=== PATIENT | male | born 1965 | race Caucasian/White ===

== ENCOUNTER 2016-11-21 00:22 | Emergency (ER) | payer OTHER ==
[~2016-11-21] VITALS: Ht 172.7 cm; Wt 85.5 kg
[~2016-11-21 00:22] MED LIST: ACET650T82 PO; ASCO500C5 PO; ASPCH81X PO; ASPEC81 PO; IBUP-1451 PO; LABE100T23 PO; OMEG1CAP81 PO; PRV100 PO; VITA200C5 PO
[2016-11-21 00:29] VITALS: TEMP 37; Ht 172.7 cm; Wt 85.5 kg
[2016-11-21] MEDS ORDERED: KETOROLAC TROMETHAMINE 60 MG/2 ML VIAL IM STA (00:50)
[2016-11-21] MEDS ORDERED: DEXAMETHASONE SOD INJ 10 MG/ML VIAL IM ONE (01:00)
[2016-11-21] MEDS ORDERED: HYG/25 PO (01:07)
[2016-11-21] MEDS ORDERED: METH4PAK PO (02:05)
[2016-11-21 02:28] VITALS: BP 133/75; PULSE 85; O2SAT 98
--- NOTE | 2016-11-21 08:40 | DIAGNOSTIC IMAGING REPORT ---
LEFT ELBOW 3 VIEWS CLINICAL HISTORY: Left elbow pain. No reported history of trauma. FINDINGS: 3 views of the left elbow are obtained. No prior studies are available for comparison at the time of dictation. No clear fracture is identified. Joint spaces appear preserved. There is an enthesophyte at the triceps insertion. An elbow joint effusion is identified. The overlying soft tissues are within normal limits. IMPRESSION: 1. No distracted fracture is identified. 2. There is a nonspecific joint effusion. Although this could be seen in the setting of occult fracture, this is considered unlikely without a history of trauma. Clinical correlation will be essential. Electronically signed by: Joo Rowan M.D. 11/21/2016 8:39 AM
--- NOTE | 2016-11-21 21:38 | EMERGENCY ROOM VISIT NOTE ---
ED Visit Note First contact with patient: 00:38 CHIEF COMPLAINT: Elbow pain HISTORY OF PRESENT ILLNESS: This 51 year old male patient presents to the emergency department complaining of pain in the left elbow slowly worsening over the past 3-4 days. The patient works with [employer], where he accidentally boxes on a regular basis. He does not recall a distinct injury or trauma. His pain is primarily along the outside of the elbow and will occasionally radiate down into his wrist. He has not had rash or fever. The patient rates their pain as dull and 7/10. The patient has taken one old oxycodone without relief of the pain. The patient has not had previous fractures to this elbow. The patient does have intermittent pins and needle sensation, but this does not persist. He is without neck or shoulder discomfort. The patient denies any other injuries. REVIEW OF SYSTEMS: A 6 system review of systems was completed with positives and pertinent negatives listed in the HPI. ALLERGIES: Hydrocodone MEDICATIONS: No chronic medications PMH: Otherwise healthy SOCIAL HISTORY: Lives at home with family. Employed. PHYSICAL EXAM: Vital Signs: Reviewed Nurse's notes, vital signs stable. GENERAL : White male, in no acute distress, well-developed, well-nourished. SKIN: The skin was without rashes, erythema, edema, warmth, or bruising. Capillary reflex less than 3 seconds. MUSCULOSKELETAL: The patient is holding their elbow left elbow with a right hand. There is tenderness over the lateral aspect of the left elbow. There is tenderness with resisted supination and pronation of the left elbow. There is no tenderness of the shoulder, wrist, or hand. No rash, erythema, or significant edema throughout the left upper extremity. The patient is able to give a thumbs up, make an OK sign, and a #3 with their fingers. Radial pulse 2+. NEURO: Patient was alert and oriented to person place and time. Normal sensation to light and sharp touch. LEFT ELBOW 3 VIEWS CLINICAL HISTORY: Left elbow pain. No reported history of trauma. FINDINGS: 3 views of the left elbow are obtained. No prior studies are available for comparison at the time of dictation. No clear fracture is identified. Joint spaces appear preserved. There is an enthesophyte at the triceps insertion. An elbow joint effusion is identified. The overlying soft tissues are within normal limits. IMPRESSION: 1. No distracted fracture is identified. 2. There is a nonspecific joint effusion. Although this could be seen in the setting of occult fracture, this is considered unlikely without a history of trauma. Clinical correlation will be essential. EMERGENCY DEPARTMENT COURSE: I examined the patient. X-ray of the elbow was performed and does not show an obvious fracture. The patient was given IM Toradol and IM Decadron here in the department. This did improve his symptoms. The patient will be placed in a sling and given information to follow with orthopedics. He will be given a Medrol Dosepak and instructions to use over-the -counter analgesics. He was otherwise invited back to the ER with any new, worsening, or concerning symptoms. Problem List Medical Problems: (1) HYPERTENSION NOS Status: Chronic (2) SYNCOPE AND COLLAPSE Status: Chronic Current/Historical Medications Scheduled Chlorthalidone (Hygroton), 25 MG PO DAILY Methylprednisolone (Medrol Dosepak), 1 PKT PO DAILY Allergies Coded Allergies: Hydrocodone (Unverified Allergy, Mild, [place], 11/21/16) Vital Signs Date Time Temp Pulse Resp B/P Pulse Ox O2 Delivery O2 Flow Rate FiO2 11/21/16 02:28 85 18 133/75 98 11/21/16 00:29 37.0 67 18 138/85 95 Room Air Medications Administered Medications (Trade) Dose Ordered Sig/Noel Route Start Time Stop Time Status Last Admin Dose Admin Dexamethasone Sodium Phosphate (Decadron Inj) 10 mg NOW ONCE IM 11/21/16 01:00 11/21/16 01:01 DC 11/21/16 01:10 10 MG Ketorolac Tromethamine (Toradol Inj) 60 mg NOW STAT IM 11/21/16 00:50 11/21/16 00:52 DC 11/21/16 01:11 60 MG Departure Information Impression Primary Impression: Left elbow pain Dispostion Home / Self-Care Condition GOOD Prescriptions Methylprednisolone (MEDROL DOSEPAK) 4 Mg Boaz 1 PKT PO DAILY, #1 PKT Prov: Roland Hyde PA-C 11/21/16 Referrals Nikunj Kahn D.O. Forms HOME CARE DOCUMENTATION FORM, IMPORTANT VISIT INFORMATION Patient Instructions A Signature Page, [facility] Additional Instructions You were seen and evaluated today on an emergency basis only. This is not a substitute for, or an effort to provide, complete comprehensive medical care. It is not possible to recognize and treat all injuries or illnesses in a single emergency department visit. For this reason it is recommended that you followup with [facility] , Dr. Kahn's office, by telephone on Tuesday to arrange a follow-up visit next week. Let them know you were seen in the ER to help make your appointment. Take the Medrol Dosepak as prescribed. For baseline pain relief you may alternate ibuprofen and acetaminophen every 4 hours for pain control. Take 600 mg ibuprofen (Advil) and then 4 hours later take 1000 mg acetaminophen (Tylenol). Do not take more than 3000 mg acetaminophen in a single day. You are welcome to return to the emergency department anytime with new, worsening, or concerning symptoms.
== END 2016-11-21 02:20 | disposition home or self-care (01) ==
LOC: C.EDB 00:24 → C.EDA 02:20
DX: M25.522 Pain in left elbow (principal); I10 Essential (primary) hypertension; R55 Syncope and collapse; Z79.899 Other long term (current) drug therapy